=== PATIENT | male | born 1960 | race Caucasian/White ===

== ENCOUNTER 2017-10-01 10:20 | Emergency (ER) | payer BC ==
--- NOTE | 2017-10-01 10:36 | ERPHSYRPT ---
- History of Present Illness Time Seen by Provider: 10/01/17 10:31 Source: patient Exam Limitations: no limitations Patient Subjective Stated Complaint: see downtime chart Triage Nursing Assessment: see downtimne chart Physician History: The patient is a 56-year-old male complaining of a headache behind his left eye that began yesterday. Yesterday it was minimal. It got better during the night. When he woke up this morning he did not notice it. When he was at work it began to hurt much more than it did yesterday. This started at 6 AM or foreign half hours ago. Yesterday his left leg also felt "wobbly". He said he felt kind of dizzy. This morning also with the increase in his headache, his dizziness and wobbly feeling in his left leg was worse than yesterday. Yesterday he also had diarrhea. He denies fever or chills. He denies being lightheaded. He denies nausea or vomiting. He does not have a history of migraine headaches. His past medical history is significant for diabetes, hypertension, and an enlarged heart. Timing/Duration: yesterday Quality: aching, pressure Head Pain Location: frontal (behind left eye) Severity of Pain-Max: moderate Severity of Pain-Current: moderate Recent Head Trauma: no recent headache/trauma Modifying Factors: Worsens With: exposure to light, noise Associated Symptoms: dizziness, trouble walking (left leg problems), No nausea/ vomiting, No sensitive to light, No speech problems Previous symptoms: no prior history - Review of Systems Constitutional: No Fever, No Chills Eyes: No Symptoms Ears, Nose, & Throat: No Symptoms Respiratory: No Cough, No Dyspnea Cardiac: No Chest Pain, No Edema, No Syncope Abdominal/Gastrointestinal: Diarrhea, No Abdominal Pain, No Nausea, No Vomiting Genitourinary Symptoms: No Dysuria Musculoskeletal: No Back Pain, No Neck Pain Skin: No Rash Neurological: Dizziness, Headache Psychological: No Symptoms Endocrine: No Symptoms Hematologic/Lymphatic: No Symptoms Immunological/Allergic: No Symptoms All Other Systems: Reviewed and Negative - Past Medical History Pertinent Past Medical History: Yes - Social History Smoking Status: Current every day smoker Exposure to second hand smoke: Yes Drug Use: none Patient Lives Alone: No - Nursing Vital Signs Nursing Vital Signs: Initial Vital Signs Temperature 98 F 10/01/17 10:21 Pulse Rate 60 10/01/17 10:21 Respiratory Rate 16 10/01/17 10:21 Blood Pressure 144/91 10/01/17 10:21 O2 Sat by Pulse Oximetry 95 10/01/17 10:21 Pain Scale Pain Intensity 4 - Physical Exam General Appearance: no apparent distress Eye Exam: PERRL/EOMI, eyes nml inspection, No photophobia Ears, Nose, Throat Exam: normal ENT inspection, moist mucous membranes Neck Exam: normal inspection, supple, full range of motion, No meningismus Respiratory Exam: normal breath sounds, lungs clear Cardiovascular Exam: regular rate/rhythm, normal heart sounds Gastrointestinal/Abdominal Exam: soft, No tenderness, No distention Back Exam: normal inspection, normal range of motion Extremity Exam: normal inspection, normal range of motion Mental Status Exam: alert, oriented x 3, cooperative conveyor worker Exam: normal hearing, normal speech, PERRL, tongue midline, No facial droop , No facial paresthesias, No facial weakness Coordination/Gait Exam: normal cerebellar function Motor/Sensory Exam: no motor deficit, no sensory deficit Skin Exam: normal color, warm, dry, No rash SpO2 Interpretation: normal SpO2: 95 Oxygen Delivery: Room Air - Course EKG Interpreted by Me: RATE, Sinus Rhythm, NORMAL AXIS, NORMAL INTERVALS, NORMAL QRS, NORMAL ST-T - CT Exams Head CT Interpretation: Tele-radiologist Report (Dr Mota), Other (no finding of old right cerebellar infarct compared to head CT 03/28/2006.) Ordered Tests: Active Orders 24 hr Category Date Time 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 Care 10/01/17 10:37 Active EKG-ER Only STAT Care 10/01/17 10:52 Active IV Insertion STAT Care 10/01/17 10:37 Active Pulse Oximetry (ED) STAT Care 10/01/17 10:37 Active HEAD WITHOUT CONTRAST [CT] Stat Exams 10/01/17 10:38 Completed CBC W DIFF Stat Lab 10/01/17 10:30 Completed CMP Stat Lab 10/01/17 10:30 Completed UA W/ MICROSCOPIC Stat Lab 10/01/17 11:46 Completed Medication Summary Discontinued Medications Generic Name Dose Route Start Last Admin Trade Name Freq PRN Reason Stop Dose Admin Sodium Chloride 1,000 mls @ 999 mls/hr 10/01/17 10:37 10/01/17 13:10 Sodium Chloride 0.9% 1000 Ml IV 10/01/17 11:37 Infused .Q1H1M STA Infusion Sodium Chloride Confirm 10/01/17 11:01 Sodium Chloride 0.9% 1000 Ml Administered 10/01/17 11:02 Dose 1,000 mls @ ud .ROUTE .STK-MED ONE Ketorolac Tromethamine 30 mg 10/01/17 10:37 10/01/17 11:11 Toradol 30 Mg Injection IV 10/01/17 10:38 30 mg STAT ONE Administration Ketorolac Tromethamine Confirm 10/01/17 11:01 Toradol 30 Mg Injection Administered 10/01/17 11:02 Dose 30 mg .ROUTE .STK-MED ONE Promethazine HCl 25 mg 10/01/17 10:37 10/01/17 11:11 Phenergan 25 Mg Inj IV 10/01/17 10:38 25 mg STAT ONE Administration Promethazine HCl Confirm 10/01/17 11:01 Phenergan 25 Mg Inj Administered 10/01/17 11:02 Dose 25 mg .ROUTE .STK-MED ONE Lab/Rad Data: Laboratory Result Diagrams 10/01/17 10:30 10/01/17 10:30 Laboratory Results 10/01/17 10/01/17 10/01/17 Range/Units 11:46 10:30 10:30 WBC 7.4 (4.0-10.5) K/mm3 RBC 4.11 (4.1-5.6) M/mm3 Hgb 12.8 (12.5-18.0) gm/dl Hct 36.8 L (42-50) % MCV 89.5 (78-100) fl MCH 31.1 (26-32) pg MCHC 34.8 (32-36) g/dl RDW 13.7 (11.5-14.0) % Plt Count 165 (150-450) K/mm3 MPV 12.7 H (6-9.5) fl Gran % 64.3 (36.0-66.0) % Eos # (Auto) 0.19 (0-0.5) Absolute Lymphs (auto) 1.86 (1.0-4.6) Absolute Monos (auto) 0.53 (0.0-1.3) Lymphocytes % 25.1 (24.0-44.0) % Monocytes % 7.1 (0.0-12.0) % Eosinophils % 2.6 (0.00-5.0) % Basophils % 0.9 (0.0-0.4) % Absolute Granulocytes 4.77 (1.4-6.9) Basophils # 0.07 (0-0.4) Sodium 140 (137-145) mmol/L Potassium 3.7 (3.5-5.1) mmol/L Chloride 106 (98-107) mmol/L Carbon Dioxide 25 (22-30) mmol/L Anion Gap 12.5 (5-15) MEQ/L BUN 21 H (9-20) mg/dL Creatinine 1.39 H (0.66-1.25) mg/dL Estimated GFR 56.4 ML/MIN Glucose 119 H (74-106) mg/dL Calcium 9.2 (8.4-10.2) mg/dL Total Bilirubin 0.20 (0.2-1.3) mg/dL AST 19 (17-59) U/L ALT 24 (0-50) U/L Alkaline Phosphatase 68 (38-126) U/L Serum Total Protein 6.7 (6.3-8.2) g/dL Albumin 3.8 (3.5-5.0) g/dL Ur Collection Type VOID Urine Color YELLOW (YELLOW) Urine Appearance CLEAR (CLEAR) Urine pH 5.0 (5-6) Ur Specific [place] 1.010 (1.005-1.025) Urine Protein 100 (Negative) Urine Ketones NEGATIVE (NEGATIVE) Urine Blood 5-10 (0-5) Jus/ul Urine Nitrite NEGATIVE (NEGATIVE) Urine Bilirubin NEGATIVE (NEGATIVE) Urine Urobilinogen NORMAL (0-1) mg/dL Ur Leukocyte Esterase NEGATIVE (NEGATIVE) Urine Microscopic RBC 0-2 (0-2) /HPF Urine Microscopic WBC 0-2 (0-5) /HPF Ur Epithelial Cells RARE (FEW) /HPF Urine Bacteria RARE (NEGATIVE) /HPF Urine Mucus SLIGHT (NEGATIVE) /HPF Urine Culture Reflexed NO (NO) Urine Glucose 50 (NEGATIVE) mg/dL Specimen Received 10/01/17 1020 - Progress Progress: improved Air Movement: good Blood Culture(s) Obtained: No Antibiotics given: No Counseled pt/family regarding: lab results, diagnosis, rad results - Departure Time of Disposition: 13:39 Departure Disposition: Home Clinical Impression: Headache Condition: Stable Critical Care Time: No Referrals: SARINA ROB MD [Primary Care Provider] - Additional Instructions: You had a left-sided headache. You were given Toradol 30 mg, Phenergan 25 mg, and fluids by IV in the ER. All of your laboratory results were normal. 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 There was nothing of recent injury that could be seen on the head CT. Stay well hydrated. Take Tylenol and ibuprofen as needed. Follow-up with your primary medical doctor for further discussion of the old stroke.
[2017-10-01] MEDS ORDERED: Phenergan 25 MG INJ IV ONE (10:37)
[2017-10-01] MEDS ORDERED: Sodium Chloride 0.9% 1000 ML 1,000 ML IV STA (10:37)
[2017-10-01] MEDS ORDERED: TORAdol 30 mg Injection IV ONE (10:37)
[2017-10-01 10:54] LABS: BASOPHIL % 0.9 % (0.0-0.4); Basophil (Absolute #) 0.07 (0-0.4); Eosinophil % 2.6 % (0.00-5.0); Eosinophil (Absolute #) 0.19 (0-0.5); Granulocyte Absolute (ANC) 4.77 (1.4-6.9); Granulocytes % 64.3 % (36.0-66.0); Hematocrit 36.8 % (42-50); Hemoglobin 12.8 gm/dl (12.5-18.0); Lymphocyte (Absolute #) 1.86 (1.0-4.6); Lymphocytes % 25.1 % (24.0-44.0); Mean Cell Volume 89.5 fl (78-100); Mean Corpuscular Hemoglobin 31.1 pg (26-32); Mean Corpuscular Hgb Concent. 34.8 g/dl (32-36); Mean Platelet Volume 12.7 fl (6-9.5); Monocyte (Absolute #) 0.53 (0.0-1.3); Monocytes % 7.1 % (0.0-12.0); Platelet Count 165 K/mm3 (150-450); Red Blood Count 4.11 M/mm3 (4.1-5.6); Red Cell Distribution Width 13.7 % (11.5-14.0); White Blood Count 7.4 K/mm3 (4.0-10.5)
[2017-10-01] MEDS ORDERED: Phenergan 25 MG INJ ONE (11:01)
[2017-10-01] MEDS ORDERED: Sodium Chloride 0.9% 1000 ML 1,000 ML ONE (11:01)
[2017-10-01] MEDS ORDERED: TORAdol 30 mg Injection ONE (11:01)
--- NOTE | 2017-10-01 11:17 | XRAY ---
Indication: Headache. Left facial numbness. Dizziness. Multiple contiguous axial images obtained through the head without contrast. Comparison: March 28, 2006. New finding for small old right cerebellar infarct. No acute intracranial hemorrhage, hydrocephalus, or mass effect. Quinones-white matter differentiation preserved. Bony calvarium intact. Visualized paranasal sinuses and mastoid air cells are clear. 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 No acute intracranial abnormalities. CT DI 67.60
[2017-10-01 11:23] LABS: ALBUMIN 3.8 g/dL (3.5-5.0); ANION GAP 12.5 MEQ/L (5-15); BILIRUBIN,TOTAL 0.2 mg/dL (0.2-1.3); Calcium 9.2 mg/dL (8.4-10.2); Creatinine 1 1.39 mg/dL (0.66-1.25); Potassium 3.7 mmol/L (3.5-5.1); Total Protein 6.7 g/dL (6.3-8.2)
[2017-10-01 12:14] LABS: Appearance CLEAR (CLEAR); Bilirubin NEGATIVE (NEGATIVE); Glucose 50 mg/dL (NEGATIVE); Ketones NEGATIVE (NEGATIVE); Leukocyte Esterase NEGATIVE (NEGATIVE); Nitrite NEGATIVE (NEGATIVE); Protein,Urine Dip 100 (Negative); Urobilinogen NORMAL mg/dL (0-1)
[2017-10-01 12:40] LABS: Bacteria RARE /HPF (NEGATIVE); Epithelial Cells RARE /HPF (FEW); Mucus SLIGHT /HPF (NEGATIVE); RBC 0-2 /HPF (0-2); WBC 0-2 /HPF (0-5)
[2017-10-01 13:59] VITALS: BP 159/83; PULSE 60; O2SAT 97
== END 2017-10-01 14:06 | disposition home or self-care (01) ==
LOC: ED 10:20
DX: R51 Headache (principal); R42 Dizziness and giddiness; R26.2 Difficulty in walking, not elsewhere classified
CPT/HCPCS: 36000; 36415; 70450; 80053; 81000; 85025; 93005; 93041; 96360; 96374; 96375; 99285; J1885; J2550